=== PATIENT | female | born 1990 | race Caucasian/White ===

== ENCOUNTER → 2018-04-23 | Outpatient (REF) ==
[2015-08-24 10:59] VITALS: BMI 26.4
[~2018-04-23] MED LIST: AMOX500T10 PO; DOCU-202 PO; FLUT16SP19 NS; NAPR220C12 PO; NORG1TAB74 PO; PER PO
[2018-04-23 08:42] LABS: LDL CHOLESTEROL 53 mg/dl
== END ==
DX: Z02.9 Encounter for administrative examinations, unspecified (principal)

== ENCOUNTER → 2018-05-21 | Outpatient (CLI) | payer OTHER ==
[2015-08-24 10:59] VITALS: BMI 26.4
[~2018-05-21] MED LIST changes: +EPIN0.3P15 IM
== END ==
LOC: LAB 10:45
PROVIDERS: ATTEND Otolaryngology
DX: Z91.018 Allergy to other foods (principal)
CPT/HCPCS: 36415; 86003

== ENCOUNTER → 2018-11-05 | Outpatient (REF) ==
[2015-08-24 10:59] VITALS: BMI 26.4
[2018-11-05 09:15] LABS: LDL CHOLESTEROL 63 mg/dl
== END ==
DX: Z02.9 Encounter for administrative examinations, unspecified (principal)

== ENCOUNTER → 2018-11-11 | Outpatient (CLI) | payer OTHER ==
[2015-08-24 10:59] VITALS: BMI 26.4
[~2018-11-11] MED LIST changes: +PHEN200T32 PO; +SULF-198 PO
== END ==
LOC: LAB 13:02
PROVIDERS: ATTEND Nurse Practitioner Primary Care
DX: R30.0 Dysuria (principal); N39.0 Urinary tract infection, site not specified
CPT/HCPCS: 81001; 87088